=== PATIENT | female | born 1950 | race Caucasian/White ===

== ENCOUNTER 2018-12-22 14:54 | Emergency (ER) | payer MEDICARE, OTHER ==
[~2018-12-22] VITALS: Ht 167.6 cm; Wt 99.8 kg
[~2018-12-22 14:54] MED LIST: ACID CONTROL150 MG; ASTEPRO205.5 MCG/ NAS; ATIVAN1 MG PO; BENTYL20 MG PO; BENZONATATE200 MG PO; CALCIUM500 M1 PO; CARBIDOPA-LEVO1 EA10 PO; CARISOPRODOL250 MG PO; CLONIDINE HCL0.1 MG PO; CROMOLYN SODIUM10 ML OPTH; CYMBALTA30 MG PO; CYMBALTA60 MG PO; FISH OIL 1,0001 EAC3 PO; GLUCOPHAGE500 MG PO; HALOPERIDOL5 MG PO; HYDROCODON-ACE1 EAC8 PO; I-CAPS WITH LU1 EACH PO; LACTULOSE10 GM/15 M PO; LISINOPRIL-HCT1 EAC2 PO; LISINOPRIL10 MG PO; MUCINEX600 MG PO; PRESERVISION A1 EACH PO; PRILOSEC10 MG PO; PRILOSEC20 MG PO; RANITIDINE HCL150 MG PO; SEROQUEL100 MG PO; SEROQUEL50 MG PO; SUCRALFATE1 GM PO; TYLENOL325 MG PO; ULTRAM50 MG PO; VALIUM5 MG PO; VENTOLIN HFA18 GM INH; VITAMIN B COMP1 EACH PO; VITAMIN B-125000 MC2 PO; VITAMIN D5000 UNIT PO; VITAMIN E400 UNI1 PO; VITAMIN K240 MCG PO; ZOLOFT100 MG PO; ZYRTEC10 MG PO
--- OUTSIDE RECORDS SUMMARY | 2018-12-22 14:56 | XMS ---
PreManage Notification: KAVEH ALVES Security Prepress Specialist Events No recent Security Events currently on file CRITERIA MET - [facility]ACK[facility] CARE PROVIDERS Pancho Mclaughlin Current PHONE: Unknown Joss has no Care Guidelines for this patient. E.Alison VISIT COUNT (12 MO.) 1 ZORAN Rico TOTAL 1 NOTE: Visits indicate total known visits. ED/UCC VISIT TRACKING (12 MO.) 12/22/2018 14:[address] [facility] TYPE: Emergency COMPLAINT: - VISION PROBLEM INPATIENT VISIT TRACKING (12 MO.) No inpatient visits to display in this time frame [email or web address]
[2018-12-22] MEDS ORDERED: MUCINEX100 MG PO (15:17)
== END 2018-12-22 17:25 | disposition home or self-care (01) ==
LOC: ED 14:54
DX: G43.109 Migraine with aura, not intractable, without status migrainosus (principal); I10 Essential (primary) hypertension; F32.9 Major depressive disorder, single episode, unspecified; K21.9 Gastro-esophageal reflux disease without esophagitis; Z90.49 Acquired absence of other specified parts of digestive tract; Z90.710 Acquired absence of both cervix and uterus; Z88.0 Allergy status to penicillin; Z88.6 Allergy status to analgesic agent; Z88.1 Allergy status to other antibiotic agents; Z88.5 Allergy status to narcotic agent; Z88.8 Allergy status to other drugs, medicaments and biological substances; Z79.899 Other long term (current) drug therapy
CPT/HCPCS: 36415; 70450; 80053; 85025; 85610; 96361; 96374; 96375; 99284-25; J1200; J2765; J7040